=== PATIENT | male | born 1985 | race Caucasian/White ===

== ENCOUNTER 2020-06-04 00:20 | Emergency (ER) | payer BC, MEDICAID ==
[2020-06-04 00:38] VITALS: BP 134/63; PULSE 106
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
== END 2020-06-04 02:00 | disposition home or self-care (01) ==
LOC: LB.ED 00:20
DX: S09.93XA Unspecified injury of face, initial encounter (principal); F17.210 Nicotine dependence, cigarettes, uncomplicated; Y04.0XXA Assault by unarmed brawl or fight, initial encounter
CPT/HCPCS: 70486; 99283

== ENCOUNTER 2024-08-09 17:35 | Emergency (ER) | payer BC ==
[2024-08-09] MEDS: Acetaminophen/HYDROcodone 325-5 MG Tab PO ONE (19:45)
[2024-08-09] MEDS: Ketorolac 30 MG/ML SDV IM ONE (19:46)
[2024-08-10 02:49] VITALS: BP 128/84; PULSE 89
== END 2024-08-09 19:55 | disposition home or self-care (01) ==
LOC: LB.ED 17:35
DX: S73.101A Unspecified sprain of right hip, initial encounter (principal); F17.210 Nicotine dependence, cigarettes, uncomplicated; W10.8XXA Fall (on) (from) other stairs and steps, initial encounter; Y93.89 Activity, other specified
CPT/HCPCS: 73502-RT; 96372; 99283; A9270-GY; J1885

== ENCOUNTER 2025-01-02 23:27 | Emergency (ER) | payer BC ==
[2025-01-02] MEDS: Ketorolac 30 MG/ML SDV IM ONE (23:44)
[2025-01-03 00:12] VITALS: BP 125/85; PULSE 94
== END 2025-01-03 00:17 | disposition home or self-care (01) ==
LOC: LB.ED 23:27
DX: S93.401A Sprain of unspecified ligament of right ankle, initial encounter (principal); S96.911A Strain of unspecified muscle and tendon at ankle and foot level, right foot, initial encounter; X50.1XXA Overexertion from prolonged static or awkward postures, initial encounter; Y93.89 Activity, other specified
CPT/HCPCS: 73610; 96372; 99283; J1885